=== PATIENT | female | born 1985 | race Caucasian/White ===

== ENCOUNTER 2018-09-22 20:35 | Emergency (ER) | payer OTHER ==
[~2018-09-22] VITALS: Ht 170.2 cm; Wt 63.5 kg
[2018-09-22 20:45] VITALS: BP_SYST 154
--- NOTE | 2018-09-22 20:45 | NUR ---
Patient to ER bed 4 to gown for evaluation. Side rails up. Report given to YISEL Samano.
--- NOTE | 2018-09-22 20:46 | NUR ---
Pt was getting under eye filler when 32 gauge 1/2 in long need broke off and stayed in skin. Her MD called specialist and was told that it wasn't urgent enought to be seen and scheduled to be seen tomorrow. Per patient, she over heard staff talking about location of needle and reported "mid pupil line area, perpendicular to orbital rim touching nasal bone in soft tissue." Pt states when squinting and or facial movement, she feels it burning. Addendum: 09/22/18 at 2355 by [email or web address] Pt was getting under eye filler when 32 gauge 1/2 inch long needle broke off and stayed in skin. Her MD called specialist and was told that it "wasn't urgent enough to be seen and can be scheduled to be seen tomorrow." Per patient, she over heard staff talking about location of needle and reported "mid pupil line area, perpendicular to orbital rim touching nasal bone in soft tissue." Pt states when squinting and or facial movement, she feels it burning.
--- NOTE | 2018-09-22 20:50 | NUR ---
PT states that her MD told her that, "it is okay for her to go home just try not to sleep on that side where the needle broke off."
--- NOTE | 2018-09-22 21:00 | NUR ---
ER at bedside examining patient.
[2018-09-22] MEDS ORDERED: IBUPROFEN 600 MG TABLET PO ONE (22:00)
--- NOTE | 2018-09-22 23:37 | NUR ---
Pt states that she is okay for medical information to be disclosed to Dr. James Akins, call forwarded to Dr. Rodríguez.
--- NOTE | 2018-09-23 00:30 | NUR ---
Pt resting comfortably in bed. No signs of acute distress. Will cont. to monitor.
[2018-09-23 01:55] VITALS: BP_SYST 154
--- NOTE | 2018-09-23 01:55 | NUR ---
Patient given written and verbal discharge instructions and verbalizes understanding. ER MD Dr. Rodríguez discussed with patient the results and treatment provided. Patient in stable condition. ID arm band removed. Rx of clindamycin and motrin given. Patient educated on pain management and to follow up with PMD. Pain Scale 2/10, tolerable for pt. Pt able to ambulate with steady gait, no signs of acute distress. Opportunity for questions provided and answered. Medication side effect fact sheet provided.
== END 2018-09-23 01:55 | disposition home or self-care (01) ==
LOC: SED 20:35
DX: M79.5 Residual foreign body in soft tissue (principal); R03.0 Elevated blood-pressure reading, without diagnosis of hypertension
CPT/HCPCS: 70486-TC; 81025; 99284